=== PATIENT | female | born 1980 | race Asian ===

== ENCOUNTER 2016-03-03 11:15 | Inpatient (IN) | payer OTHER ==
--- NOTE | 2016-03-03 12:15 | HP ---
Past Medical History - Admission Chief Complaint: painful contractions History of Present Illness: 35 y/o with SIUP at 39 weeks (EDC 03/10/16 by LMP and ultrasound) presents today with painful contractions since last night. Also pt states she passed her mucus plug. has been uncomplicated other than AMA and mom being a CF carrier. Pt has been following with MFM. 1st trimester screen WNL. AFP WNL. NO LOF. Some vaginal spotting. +FM. 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 Cardiovascular: No: AFIB, CAD, HTN Pulmonary: No: Asthma Gastrointestinal: No: Constipation, GERD Hepatobiliary: No: Hepatitis B, Hepatitis C ...: 1 ...Para: 0 ...Term: 0 ...: 0 ...Spon : 0 ...Induced : 0 ...Multiple Gestation: 0 ...EDC by Dates: 03/10/16 ...EDC by Sono: 03/10/16 Heme/Onc: No: Anemia Infectious Disease: No: HIV, MRSA, STD's Psych: No: Anxiety, Bipolar, Depression Musculoskeletal: No: Chronic low back pain - Past Surgical History Past Surgical History: Yes: None Hx Myomectomy: No Hx Transabdominal Cerclage: No - Smoking History Have you smoked in the past 12 months: No - Alcohol/Substance Use History of Substance Use: reports: None - Social History Usual Living Arrangement: Yes: With Spouse ADL: Independent History of Recent Travel: No Review of Systems - Review of Systems Constitutional: reports: No Symptoms Eyes: reports: No Symptoms HENT: reports: No Symptoms Neck: reports: No Symptoms Cardiovascular: reports: No Symptoms Respiratory: reports: No Symptoms Gastrointestinal: reports: No Symptoms Genitourinary: reports: No Symptoms Breasts: reports: No Symptoms Reported Musculoskeletal: reports: No Symptoms Integumentary: reports: No Symptoms Neurological: reports: No Symptoms Endocrine: reports: No Symptoms Hematology/Lymphatic: reports: No Symptoms Psychiatric: reports: No Symptoms Physical Exam - Maternity Constitutional: Yes: Well Nourished, No Distress, Calm Eyes: Yes: Conjunctiva Clear, EOM Intact HENT: Yes: Atraumatic, Normocephalic Neck: Yes: Supple, Trachea Midline Cardiovascular: Yes: Regular Rate and Rhythm Lungs: Clear to auscultation - Abdominal Exam/OB Fundal Height: 39 Number of Fetuses: Single Presentation: Vertex Contractions: Yes Regularity: Irregular Category: I Accelerations: Uniform Decelerations: None - Vaginal Exam/OB Vaginal Bleediing: No Dilatation (cm): 4 Effacement (%): 90 Amniotic Membrane Status: Intact Presentation: Vertex/Position Station: -1 (and posterior) - Physical Exam Psychiatric: Yes: Alert, Oriented Hemorrhage Risk Assessment - Risk Factors Medium Risk Factors: Yes: None High Risk Factors: Yes: None Risk Score: 1 Risk Level: Medium Risk Problem List - Problems (1) Term Code(s): Z34.80 - ENCOUNTER FOR SUPRVSN OF NORMAL , UNSP TRIMESTER Assessment/Plan 35 y/o with SIUP at 39 weeks, painful contractions - FHTS cat 1 - labor pains/cervix 4/90/-1, likely early labor. Admit to L&D, allow ambulation and intermittent monitoring. TO start pitocin if no progress. - GBS negative
[2016-03-03] MEDS ORDERED: BUTORPHANOL TARTRATE 1 MG/ML VIAL IVPB ONE (12:42)
[2016-03-03] MEDS ORDERED: PROMETHAZINE HCL 25 MG/1 ML VIAL IVPUSH ONE (12:42)
[2016-03-03] MEDS: DEXTROSE 5%-LACTATED RINGERS 1,000 ML IV SCH (13:30)
[2016-03-03 13:33] VITALS: BMI 28.8
[2016-03-03 13:36] LABS: BASOPHIL 0.3 % (0-2.0); MCH 27.1 pg (25.7-33.7); MCHC 32.6 g/dl (32.0-36.0); MEAN CELL VOLUME 83.1 fl (80-96); MEAN PLT VOLUME 8.5 fl (7.5-11.1); NEUTROPHILS 86.2 % (42.8-82.8); PLATELET COUNT 226 K/MM3 (134-434); RDW 13.9 % (11.6-15.6); WHITE BLOOD COUNT 16.6 K/mm3 (4.0-10.0)
[2016-03-03 13:52] LABS: INR 0.98 (0.82-1.09); PROTHROMBIN TIME (PATIENT) 10.8 SEC (9.98-11.88)
[2016-03-03 13:55] LABS: ACTIVATED PTT 28.6 SECONDS (26.9-34.4)
[2016-03-03 13:59] LABS: CALCIUM 8.5 mg/dL (8.5-10.1); CREATININE 0.5 mg/dL (0.55-1.02)
[2016-03-03] MEDS: OXYTOCIN 15 UNITS/ LR 250 ML 250 ML IVPB SCH (18:56)
[2016-03-03] MEDS ORDERED: DEXTROSE 5%-LACTATED RINGERS 1,000 ML IV ONE (20:20)
[2016-03-03] MEDS ORDERED: ELECTROLYTE-148 SOLN 500 ML IV ONE (21:00)
[2016-03-03] MEDS: FENTANYL/BUPIVACAINE/NS/PF - PCEA - 50 ML DISP.SYRIN EP SCH (21:40)
[2016-03-04] MEDS ORDERED: ELECTROLYTE-148 SOLN 1,000 ML IV ONE ×3 (06:00→17:22)
--- NOTE | 2016-03-04 06:39 | PN ---
[id number] Vital Signs: Vital Signs Temperature 98.6 F 03/04/16 06:00 Pulse Rate 67 03/04/16 05:30 Respiratory Rate 18 03/04/16 05:30 Blood Pressure 98/68 03/04/16 05:30 O2 Sat by Pulse Oximetry (%) 99 03/04/16 05:30 Bleeding: No Headache: No Visual changes: No Right upper quadrant pain: No - Contractions Contractions: Yes Regularity: Irregular Intensity: Mild Monitor Mode: External - Exam during Labor Variability: Moderate Category: I Monitor Accelerations: Present Monitor Decelerations: None Exam: Vaginal Dilatation (cm): 5 Effacement (%): 90 Presentation: Vertex Station: -2 - Intrapartum Hemorrhage Risk Medium Risk Factors: None High Risk Factors: None Risk Score: 0 Risk Level: Low Risk - Assessment/Plan Assessment/Plan: 35 yo in early labor at 39 weeks fhts cat 1 start pitocin augmentation gbs negative
--- NOTE | 2016-03-04 09:32 | PN ---
Ante-Partal Exam - Subjective Subjective: Pt doing well pt with epidural Vital Signs: Vital Signs Temperature 97.8 F 03/04/16 09:00 Pulse Rate 70 03/04/16 09:00 Respiratory Rate 18 03/04/16 09:00 Blood Pressure 115/75 03/04/16 09:00 O2 Sat by Pulse Oximetry (%) 96 03/04/16 09:00 Bleeding: No Headache: No Visual changes: No Right upper quadrant pain: No - Contractions Contractions: Yes Regularity: Regular Monitor Mode: External - Exam during Labor Heart Rate: 145 Variability: Moderate Category: I Monitor Accelerations: Present Monitor Decelerations: None Exam: Vaginal Dilatation (cm): 7 cm Effacement (%): 100 Amniotic Membrane Status: Ruptured Amniotic Fluid: Clear Presentation: Vertex - Intrapartum Hemorrhage Risk Risk Score: 1 Risk Level: Medium Risk - Assessment/Plan Assessment/Plan: IUp at 39.1 Active labor Plan continue present management Anticipate vaginal delivery
[2016-03-04] MEDS: DEXTROSE 5%-LACTATED RINGERS 1,000 ML IV SCH (17:20)
[2016-03-04] MEDS ORDERED: ACETAMINOPHEN 1000 MG/100 ML VIAL (NON FORMULARY) IVPB ONE (20:39)
[2016-03-04] MEDS: AMPICILLIN - 2 GM in SODIUM CHLORIDE 100 ML IVPB SCH (20:40)
--- NOTE | 2016-03-04 20:40 | PN ---
Ante-Partal Exam - Subjective Subjective: Pt with mild pressure temp 100.7 earlier now 98.9 epidural turned off Pt on 8mu of pitocin Vital Signs: Vital Signs Temperature 98.9 F 03/04/16 20:22 Pulse Rate 80 03/04/16 18:50 Respiratory Rate 18 03/04/16 18:50 Blood Pressure 124/79 03/04/16 18:50 O2 Sat by Pulse Oximetry (%) 95 03/04/16 18:50 Bleeding: No Headache: No Visual changes: No Right upper quadrant pain: No - Contractions Contractions: Yes Regularity: Regular - Exam during Labor Heart Rate: 160 Variability: Moderate Category: I Monitor Decelerations: None Exam: Vaginal Dilatation (cm): FD Effacement (%): 100 Amniotic Membrane Status: Ruptured Amniotic Fluid: Clear Presentation: Vertex Station: +1 - Intrapartum Hemorrhage Risk Risk Score: 1 Risk Level: Medium Risk - Assessment/Plan Assessment/Plan: iup at 39.2 week arom febrile r/o chorio fully dilated Plan anticipate vaginal delivery will continue antibiotics Ampicillin 2 gm CBC T&S
--- NOTE | 2016-03-04 23:09 | PN ---
Ante-Partal Exam - Subjective Subjective: Pt has been pushing for 2 hours. Pt with maternal exhaustion pt desires vacuum due to materanl exhaustion Vital Signs: Vital Signs Temperature 98.9 F 03/04/16 20:22 Pulse Rate 82 03/04/16 20:30 Respiratory Rate 20 03/04/16 20:30 Blood Pressure 115/74 03/04/16 20:30 O2 Sat by Pulse Oximetry (%) 96 03/04/16 20:30 Bleeding: No Headache: No Visual changes: No Right upper quadrant pain: No Pain (scale 1-10): 8 - Contractions Contractions: Yes Regularity: Regular Intensity: Mod/Strong Monitor Mode: External - Exam during Labor Heart Rate: 160 Variability: Moderate Category: II Monitor Accelerations: Present Monitor Decelerations: Variable Exam: Vaginal Dilatation (cm): FD Effacement (%): 100 Amniotic Membrane Status: Ruptured Amniotic Fluid: Meconium Stained Presentation: Vertex Station: +2 - Intrapartum Hemorrhage Risk Medium Risk Factors: Chorioamniomitis Risk Score: 1 Risk Level: Medium Risk - Assessment/Plan Assessment/Plan: FUlly dilated Maternal exhaustion Cat 2 -variability Plan will do attempt vacuum If no progress then will do Section
[2016-03-04] MEDS: D5W-LR W/ 20 UNITS OXYTOCIN 1,000 ML IV SCH (23:25)
[2016-03-04] MEDS ORDERED: METHYLERGONOVINE MALEATE 0.2 MG/1 ML AMP IM PRN (23:39)
[2016-03-04] MEDS ORDERED: BENZOCAINE 28 GM HEMORRHOIDAL OINTMENT TP PRN (23:39)
[2016-03-04] MEDS ORDERED: BISACODYL 10 MG SUPP.RECT RC PRN (23:39)
[2016-03-04] MEDS ORDERED: WITCH HAZEL 50% (TUCKS) 40 PAD/JAR PAD TP PRN (23:39)
[2016-03-04] MEDS ORDERED: BENZOCAINE 20% 57 GM BOTTLE TP PRN (23:39)
--- NOTE | 2016-03-04 23:39 | PROC ---
Obstetrical Vaccum Device - Doc. Following Use of Vaccum Device Indications for use: Maternal Exhaustion, Prolonged Second Stage Risks and Benefits Explained: Yes Consent on Chart: Yes Dilation (0-10): 10 Station: 2 Molding: No Position: OA Caput: Yes Proper placement of cup confirmed: Yes Number of pulls: 2 Number of pop-offs: 1 Reduction of pressure between contractions: Yes Appearance of head on delivery: Caput Rocket Motor Tester present during vacuum extraction: Yes Rocket Motor Tester & nursery staff notified of vacuum extraction: Yes
--- NOTE | 2016-03-04 23:47 | PN ---
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
[2016-03-04 23:49] LABS: MCH 27.2 pg (25.7-33.7); MCHC 32.9 g/dl (32.0-36.0); MEAN CELL VOLUME 82.5 fl (80-96); MEAN PLT VOLUME 8.6 fl (7.5-11.1); PLATELET COUNT 251 K/MM3 (134-434); RDW 14.4 % (11.6-15.6); WHITE BLOOD COUNT 25.7 K/mm3 (4.0-10.0)
[2016-03-04] MEDS ORDERED: OXYCODONE/APAP 5/325MG COMBO TABLET PO PRN (23:49)
[2016-03-04] MEDS ORDERED: oxyCODONE HCL 5 MG TABLET PO PRN (23:52)
[2016-03-04] MEDS ORDERED: ACETAMINOPHEN 325 MG TABLET (FP) PO PRN (23:52)
[2016-03-05 00:59] LABS: PLATELET ESTIMATE ADEQUATE (NORMAL); POIKILOCYTOSIS 1+; POLYCHROMASIA 1+; SMUDGE CELLS FEW
[2016-03-05] MEDS: DEXTROSE 5%-LACTATED RINGERS 1,000 ML IV SCH (02:32)
[2016-03-05] MEDS: OXYTOCIN 15 UNITS/ LR 250 ML 250 ML IVPB SCH (02:33)
[2016-03-05] MEDS: FENTANYL/BUPIVACAINE/NS/PF - PCEA - 50 ML DISP.SYRIN EP SCH (02:34)
[2016-03-05] MEDS: AMPICILLIN - 2 GM in SODIUM CHLORIDE 100 ML IVPB SCH ×3 (03:14→14:10)
[2016-03-05] MEDS: D5W-LR W/ 20 UNITS OXYTOCIN 1,000 ML IV SCH (05:40)
[2016-03-05] MEDS: ACETAMINOPHEN 325 MG TABLET (FP) PO PRN ×2 (05:47)
[2016-03-05 08:03] LABS: BASOPHIL 0.2 % (0-2.0); MCH 27.3 pg (25.7-33.7); MCHC 32.8 g/dl (32.0-36.0); MEAN CELL VOLUME 83.3 fl (80-96); MEAN PLT VOLUME 8.6 fl (7.5-11.1); PLATELET COUNT 196 K/MM3 (134-434); RDW 14.2 % (11.6-15.6)
[2016-03-05] MEDS: IBUPROFEN 600 MG TABLET (FP) PO PRN ×2 (08:14→14:10)
[2016-03-05] MEDS ORDERED: DIPHTH,PERTUSS(ACELL),TET 0.5 ML DISP.SYRIN IM ONE (11:00)
--- NOTE | 2016-03-05 12:53 | PN ---
Post Progress Note - Subjective Subjective: Pt seen/evaluated and doing well. Pain controlled, tolerating diet. Ambulating , voiding, VB moderate. No CP/SOB/F/C/[place] or other complaitns. Type of Delivery: Vacuum Assist Vag Del Vital Signs: Vital Signs Temperature 98.4 F 03/05/16 09:44 Pulse Rate 72 03/05/16 09:44 Respiratory Rate 18 03/05/16 09:44 Blood Pressure 94/48 03/05/16 09:44 O2 Sat by Pulse Oximetry (%) 98 03/04/16 23:45 Breast Exam: Yes: Soft Uterus: Yes: Fundus Firm Abdomen/GI: Yes: Abdomen soft, Tolerating PO. No: Tender, Passing flatus Lochia, amount: Small Extremities: Yes: Calves non-tender, Edema (trace LE edema) Perineum: Yes: Episiotomy Activity: Ambulating - Labs Labs: CBC WBC 27.0 K/mm3 (4.0-10.0) H 03/05/16 06:00 RBC 3.72 M/mm3 (3.60-5.2) 03/05/16 06:00 Hgb 10.2 GM/dL (10.7-15.3) L D 03/05/16 06:00 Hct 31.0 % (32.4-45.2) L D 03/05/16 06:00 MCV 83.3 fl (80-96) 03/05/16 06:00 MCHC 32.8 g/dl (32.0-36.0) 03/05/16 06:00 RDW 14.2 % (11.6-15.6) 03/05/16 06:00 Plt Count 196 K/MM3 (134-434) D 03/05/16 06:00 MPV 8.6 fl (7.5-11.1) 03/05/16 06:00 Neutrophils % 85.0 % (42.8-82.8) H 03/05/16 06:00 Lymphocytes % 5.6 % (8-40) L 03/05/16 06:00 Monocytes % 9.2 % (3.8-10.2) D 03/05/16 06:00 Eosinophils % 0.0 % (0-4.5) 03/05/16 06:00 Basophils % 0.2 % (0-2.0) 03/05/16 06:00 Band Neutrophils 7.0 % (0-10) 03/04/16 23:30 Smudge Cells Few 03/04/16 23:30 Platelet Estimate Adequate (NORMAL) 03/04/16 23:30 Platelet Comment No clotting detected 03/04/16 23:30 Polychromasia 1+ 03/04/16 23:30 Poikilocytosis 1+ 03/04/16 23:30 Problem List - Problems (1) Term Code(s): Z34.80 - ENCOUNTER FOR SUPRVSN OF NORMAL , UNSP TRIMESTER (2) Vaginal delivery Code(s): O80 - ENCOUNTER FOR FULL-TERM UNCOMPLICATED DELIVERY Assessment/Plan 35 yo PPD#1 s/p VAVD also with suspected chorioamnionitis - AFVSS - Hgb 10.2 after delivery - pt stable, no signs/sx of anemia - WBC 27 - on antibiotics for suspected chorioamnionitis, to continue until 24 hours afebrile. Repeat CBC in a.m. - Regular diet, PO pain meds
[2016-03-05] MEDS ORDERED: SENNOSIDES/DOCUSATE COMBO (SENNA PLUS) TABLET (UD) PO PRN (22:00)
[2016-03-06] MEDS: IBUPROFEN 600 MG TABLET (FP) PO PRN ×2 (02:22→08:18)
[2016-03-06 07:30] LABS: MCH 27.4 pg (25.7-33.7); MEAN CELL VOLUME 83.1 fl (80-96); MEAN PLT VOLUME 8.2 fl (7.5-11.1); PLATELET COUNT 191 K/MM3 (134-434); RDW 14.5 % (11.6-15.6); WHITE BLOOD COUNT 15.3 K/mm3 (4.0-10.0)
[2016-03-06] MEDS: ACETAMINOPHEN 325 MG TABLET (FP) PO PRN (08:17)
[2016-03-06 09:52] LABS: PLATELET COMMENT2 NO CLOTTING DETECTED; PLATELET ESTIMATE ADEQUATE (NORMAL)
[2016-03-06 09:53] LABS: HYPOCHROMIA 1+
[2016-03-06 11:14] VITALS: BP 111/66; PULSE 75; TEMP 98.5
--- NOTE | 2016-03-06 11:57 | DS ---
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 Vital Signs: Vital Signs Temperature 98.5 F 03/06/16 10:00 Pulse Rate 75 03/06/16 10:00 Respiratory Rate 20 03/06/16 10:00 Blood Pressure 111/66 03/06/16 10:00 O2 Sat by Pulse Oximetry (%) 98 03/04/16 23:45 Labs: CBC, BMP 03/06/16 06:15 03/03/16 13:08 Delivery - Delivery Vaginal Delivery: Vacuum Assist Type of Anesthesia: Local, Epidural Episiotomy/Laceration: Right Mediolateral EBL (cc): 500 Delivery, Single - Stages of Labor Date 1st Stage Initiatied: 03/04/16 Time 1st Stage Initiated: 10:00 Date 2nd Stage Initiated: 03/04/16 Time 2nd Stage Initiated: 20:40 Date of Delivery: 03/04/16 Time of Delivery: 23:19 Time Placenta Delivered: 20:25 Placenta: Yes: Spontaneous - Condition of Infant Shellacker/Cable Inspector Present: [place]: Campos Brody Infant Gender: Female Weight: 7 lb 3 oz Position: OA Total Hours ROM (Hrs/Mins): 14HRS. 5MINS. - 1 Minute Total Score: 7 5 Minutes Total Score: 8 - Feeding Plan Initial Plan: Exclusive throughout hospitalization Discharge Summary Reason For Visit: LABOR Current Active Problems Term (Acute) Vaginal delivery (Acute) Procedures: Principal: vacuum assisted vaginal delivery Hospital Course: patient admitted on 03/03 in labor, augmented with pitocin. patient underwent a vacuum assisted vaginal delivery on 03/04/16 and was diagnosed with suspected chorioamnionitis. after an unremarkable post recovery and 24 hours of antibiotics, pt was discharged home in stable condition and afebrile on 03/06/16. Condition: Good - Instructions Diet, Activity, Other Instructions: Physical activity Resume your normal everyday activity as tolerated no heavy lifting or exercise until seen by your surgeon. You may walk unlimited padma of and climb stairs. You may resume driving the car when you feel safe and comfortable behind the wheel. No sexual activity as instructed. Wound care If you have a bandage, leave it on, and keep dry for 48-72 hours. After that time discard the outer bandage. If they are tapes on the skin under the out of bandage leave them in place. They will peel off in the next 7 to 10 days. Do Not Peel them off. You may shower the day after surgery. If there are tapes present on the skin, you may shower over them. Diet There are no dietary restrictions. Eat healthy, high-fiber foods. Drink 6 to 8 glasses of liquid each day. This will assist in keeping your bowels are regular. Pain management You may take Tylenol or acetaminophen or Ibuprofen (for example, Motrin, Advil etc.) from my pain prescription medication is ordered should be taken as prescribed for moderate to severe pain. Call MD for any of the following: Severe pain not relieved by medication Fever of 101 or higher Excessive bleeding or drainage on dressing Inability to urinate return to office in 6 weeks. call for appointment. Referrals: Maddie Hinojosa MD [Staff Physician] - (6 weeks) Disposition: HOME - Home Medications Comprehensive Discharge Medication List: Ambulatory Orders Ascorbate Calcium [Vitamin C] 1,000 mg PO DAILY 03/03/16 Pnv95/Ferrous Fumarate/FA [ Vitamin Tablet] 1 each PO DAILY 03/03/16 Ibuprofen [Motrin -] 600 mg PO QID PRN #28 tablet 03/06/16
== END 2016-03-06 17:45 | disposition home or self-care (01) | DRG 775 ==
LOC: JDEL 11:15 → JLDR 12:10 → J3W 03-05 01:55
PROVIDERS: ADMIT Obstetrics & Gynecology; ATTEND Obstetrics & Gynecology
PROC: 0W8NXZZ Division of Female Perineum, External Approach (ICD-10-PCS; principal; 2016-03-04)
PROC: 10D07Z6 Extraction of Products of Conception, Vacuum, Via Natural or Artificial Opening (ICD-10-PCS; 2016-03-04)
DX: O09.513 Supervision of elderly primigravida, third trimester (principal); O66.5 Attempted application of vacuum extractor and forceps; Z3A.39 39 weeks gestation of pregnancy; Z37.0 Single live birth
CPT/HCPCS: 36415; 59025; 59409; 71020-TC; 80048; 85025; 85610; 85730; 86593; 86850; 86900; 86901; 90715